=== PATIENT | female | born 1995 | race Two or more races ===

== ENCOUNTER 2025-01-22 01:08 | Emergency (ER) | payer MEDICAID, OTHER ==
[~2025-01-22] VITALS: Ht 157.5 cm; Wt 89.8 kg
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
[2025-01-22 01:51] LABS: Hematocrit 41.2 % (36.0-46.0); Hemoglobin 13.4 g/dL (12.2-16.2); Mean Corpuscular Hemoglobin 28.1 pg (28.0-32.0); Mean Corpuscular Volume 86.4 fL (80.0-100.0); Nucleated Red Blood Cells % 0.1 %
[2025-01-22 02:08] LABS: Albumin 4.7 g/dL (3.2-4.8); Anion Gap 12 (5-15); BUN/Creatinine Ratio 13.9 (10.0-20.0); Bilirubin, Total 0.3 mg/dL (0.2-1.0); Blood Urea Nitrogen 10 mg/dL (9-23); Calcium 9.7 mg/dL (8.7-10.4); Carbon Dioxide 22 mmol/L (20-31); Glucose 87 mg/dL (74-106); Sodium 142 mmol/L (136-145)
[2025-01-22 02:25] LABS: Acetaminophen < 2.0 UG/ML (10.0-20.0); Salicylate < 3.0 mg/dL (-30)
[2025-01-22 02:26] LABS: Alanine Aminotransferase 46 U/L (7-40); Alkaline Phosphatase 125 U/L (46-116); Chloride 108 mmol/L (98-107); Potassium 3.4 mmol/L (3.5-5.1); Total Protein 8.2 g/dL (5.7-8.2)
[2025-01-22] MEDS: POTASSIUM EFFERVESENT TAB 25 MEQ PO ONE (03:48)
[2025-01-22 03:57] VITALS: PULSE 69; RESP 20; O2SAT 98
[2025-01-22 04:52] LABS: Urine Protein, UAD TRACE (Negative)
[2025-01-22 05:06] LABS: Amphetamine Screen, Urine Neg (NEGATIVE); Barbiturate Scree,Urine Neg (NEGATIVE); Benzodiazephine Screen, Urine Neg (NEGATIVE); Cannabinoid Screen, Urine Neg (NEGATIVE); Cocaine Screen, Urine Neg (NEGATIVE); Opiate Scree,Urine Neg (NEGATIVE); Phencyclidine Screen, Urine Neg (NEGATIVE)
[2025-01-22] MEDS ORDERED: CEPH500C PO (05:17)
[2025-01-22] MEDS: cefTRIAXone W LIDOCAINE 1 GM IM IM ONE (05:43)
[2025-01-22] MEDS: cefTRIAXone SOD 1,000 MG VL ONE (05:44)
[2025-01-22 08:01] VITALS: PULSE 83; RESP 14; O2SAT 98
[2025-01-22] MEDS ORDERED: PROPRANOLOL HCL 20 MG TAB PO ONE (09:45)
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
[2025-01-22] MEDS: SERTRALINE HCL 50 MG TAB PO ONE (10:37)
[2025-01-22] MEDS: PROPRANOLOL HCL 20 MG TAB PO ONE (13:00)
[2025-01-22] MEDS: hydrOXYzine 25 MG TAB or CAP PO ONE (23:57)
[2025-01-23 09:53] VITALS: RESP 18; O2SAT 98
[2025-01-23 11:07] VITALS: BP 100/55; PULSE 84; RESP 16; TEMP 98.2; O2SAT 96
--- NOTE | 2025-01-24 10:34 | ECG ---
[facility] Test Date: 2025-01-22 Test Time: 01:37:03 Pat Name: ANJALI GONZALEZ Department: ED Room: Gender: F Impregnator: SHANNON : 1995 Requested By: PHILIPPE SHANE Order Number: [id number] Reading MD: Measurements Intervals [place] Rate: 83 P: 78 WV: 144 QRS: 61 QRSD: 86 T: 56 QT: 361 QTc: 425 Interpretive Statements Sinus rhythm Please click the below link to view image of tracing.
== END 2025-01-23 11:15 | disposition short-term general hospital (02) ==
LOC: ER 01:08
DX: R45.851 Suicidal ideations (principal); F32.9 Major depressive disorder, single episode, unspecified; N39.0 Urinary tract infection, site not specified; F41.9 Anxiety disorder, unspecified; Z79.899 Other long term (current) drug therapy
CPT/HCPCS: 36415; 80053; 80307; 80320; 80329; 81001; 81025; 85025; 93005; 96372; 99285; J0696